=== PATIENT | female | born 1985 | race Asian ===

== ENCOUNTER 2018-06-07 05:45 | Inpatient (IN) | payer OTHER ==
[2018-06-07] MEDS ORDERED: ELECTROLYTE-148 SOLN 500 ML IV ONE ×2 (05:50→06:20)
[2018-06-07] MEDS ORDERED: TUBERCULIN PPD 5 TU/0.1ML SYRINGE (IN PATIENT USE ONLY) ID ONE (06:30)
[2018-06-07 06:38] VITALS: BMI 40.2
[2018-06-07] MEDS ORDERED: PHENYLEPHRINE HCL 10 MG/1 ML SINGLE DOSE VIAL ONE (07:37)
[2018-06-07] MEDS ORDERED: ceFAZolin SODIUM 1 GM VIAL ONE (07:37)
[2018-06-07] MEDS ORDERED: morphine SULFATE/Preservative Free 0.5 MG/ML (1cc Syringe) ONE (07:39)
[2018-06-07] MEDS ORDERED: OXYTOCIN 20 UNITS in 0.9% NS 20 UNIT/1,000 ML INFUS.BAG IV ONE ×2 (07:53→10:49)
[2018-06-07] MEDS ORDERED: CITRIC ACID/SODIUM CITRATE 30 ML UNIT-DOSE CUP PO ONE (08:00)
[2018-06-07] MEDS ORDERED: METHYLERGONOVINE MALEATE 0.2 MG/1 ML AMP IM PRN (08:02)
--- NOTE | 2018-06-07 08:10 | HP ---
Past Medical History - Primary Care Physician PCP:: Kassandra Pineda - Admission Chief Complaint: previous Section History Source: Patient - Past Medical History ...: 2 ...Para: 1 ...Term: 1 ...: 0 ...Spon : 0 ...Induced : 0 ...Multiple Gestation: 0 ...LMP: 08/27/17 ... Weeks Gestation by Dates: 40.0 ...EDC by Dates: 06/07/18 ...EDC by Sono: 06/12/18 - Past Surgical History Past Surgical History: Yes: Hx Myomectomy: No Hx Transabdominal Cerclage: No - Smoking History Smoking history: Never smoked Have you smoked in the past 12 months: No - Alcohol/Substance Use Hx Alcohol Use: No History of Substance Use: reports: None - Social History History of Recent Travel: No Home Medications - Allergies Allergies/Adverse Reactions: Allergies Allergy/AdvReac Type Severity Reaction Status Date / Time Beef Containing Products Allergy Mild Rash Verified 06/07/18 07:35 shrimp Allergy Mild Rash Verified 06/07/18 07:35 - Home Medications Home Medications: Ambulatory Orders Vitamins (Sjr) - 1 tab PO DAILY 05/22/18 Review of Systems - Review of Systems Constitutional: reports: No Symptoms Eyes: reports: No Symptoms HENT: reports: No Symptoms Neck: reports: No Symptoms Cardiovascular: reports: No Symptoms Respiratory: reports: No Symptoms Gastrointestinal: reports: No Symptoms Genitourinary: reports: No Symptoms Breasts: reports: No Symptoms Reported Musculoskeletal: reports: No Symptoms Integumentary: reports: No Symptoms Neurological: reports: No Symptoms Endocrine: reports: No Symptoms Hematology/Lymphatic: reports: No Symptoms Psychiatric: reports: No Symptoms Physical Exam - Maternity Vital Signs: Vital Signs Temperature 97.4 F L 06/07/18 05:45 Pulse Rate 87 06/07/18 05:45 Respiratory Rate 18 06/07/18 05:45 Blood Pressure 125/74 06/07/18 05:45 O2 Sat by Pulse Oximetry (%) Constitutional: Yes: Well Nourished, No Distress Neck: Yes: WNL Lungs: Clear to auscultation Breast(s): Yes: WNL - Abdominal Exam/OB Fundal Height: 40 Number of Fetuses: Single Presentation: Vertex Contractions: No Monitor Mode: External Heart Rate (range): 140 Category: I Accelerations: Non-Uniform - Vaginal Exam/OB Dilatation (cm): closed Amniotic Membrane Status: Intact Presentation: Vertex/Position - Physical Exam Musculoskeletal: Yes: WNL Extremities: Yes: WNL Edema: No Integumentary: Yes: WNL Psychiatric: Yes: WNL, Alert, Oriented Hemorrhage Risk Assessment - Risk Factors Medium Risk Factors: Yes: Prior , uterine surgery,or multiple laparotomies Risk Score: 1 Risk Level: Medium Risk Problem List - Problems (1) Previous section Code(s): Z98.891 - HISTORY OF UTERINE SCAR FROM PREVIOUS SURGERY Assessment/Plan Previous Section 39 weeks Cat1 Elective Section Plan Repeat Section
[2018-06-07] MEDS ORDERED: ePHEDrine SULFATE 50 MG/1 ML AMPULE ONE (08:11)
[2018-06-07 09:10] LABS: VENOUS PC02 45.8 mmHg (38-52); VENOUS PH 7.35 (7.32-7.42); VENOUS PO2 26.2 mmHg (28-48)
[2018-06-07 09:13] LABS: ARTERIAL BLD GAS O2 SATURATION 19.3 % (90-98.9); ARTERIAL BLOOD GAS PCO2 58.6 mmHg (35-45); ARTERIAL BLOOD GAS PO2 14.5 mmHg (80-100); ARTERIAL BLOOD GAS pH 7.27 (7.35-7.45)
[2018-06-07] MEDS ORDERED: ONDANSETRON 4 MG/2 ML VIAL IVPUSH PRN (09:38)
[2018-06-07] MEDS ORDERED: morphine SULFATE/Preservative Free 0.5 MG/ML (1cc Syringe) SPIN ONE (09:38)
[2018-06-07] MEDS ORDERED: IBUPROFEN 800 MG/8 ML IJ IVPB ONE (10:04)
[2018-06-07] MEDS: IBUPROFEN 800 MG/8 ML IJ IVPB PRN ×2 (10:15→21:26)
[2018-06-07] MEDS: ELECTROLYTE-148 SOLN 1,000 ML IV SCH (10:16)
[2018-06-07] MEDS: PRENATAL VITAMINS W/ FOLIC ACID TABLET (FP) PO SCH (10:17)
--- NOTE | 2018-06-07 15:02 | OP ---
Operative Note - Note: Operative Date: 06/07/18 Pre-Operative Diagnosis: Previous cesareanSection. IUP at 39 weeks Operation: Low transverse Section Findings: Live male nuchal cord X 1 Post-Operative Diagnosis: Same as Pre-op Surgeon: Kassandra Pineda Feeder Catcher: Femi Maciel Anesthesia: Spinal Estimated Blood Loss (mls): 700 Operative Report Dictated: Yes
[2018-06-07] MEDS: OXYTOCIN 20 UNITS in 0.9% NS 20 UNIT/1,000 ML INFUS.BAG IV SCH (18:31)
--- NOTE | 2018-06-07 20:15 | OP ---
DATE OF OPERATION: 06/07/2018 PREOPERATIVE DIAGNOSIS: Previous section, intrauterine at 39 weeks. OPERATION: Repeat section. POSTOPERATIVE DIAGNOSIS: Previous section, intrauterine at 39 weeks, nuchal cord x1, and a live male infant. SURGEON: Aaron Pineda MD LINOLEUM LAYER APPRENTICE: JAMES Alexandre; MD unavailable. ANESTHESIA: Spinal. PROCEDURE: Patient was taken to the operating room, placed in supine position, prepped and draped in usual sterile fashion. After timeout had been given, a Pfannenstiel skin incision was made through the patient's previous scar. Cautery was then used to go through the layers of abdominal wall to the level of the fascia. Fascia was cut in the midline, and cautery was then used to open the fascia in the following fashion. Kenneth was then used to bluntly and sharply dissect the rectus muscle off the fascia. Muscle split in the midline. Peritoneal cavity was then entered and carried upward and downward. Bladder retractor was then placed. Vesicouterine reflection was then entered and carried downward. Scalpel was then used to make a low transverse uterine incision. Incision was carried upwards using bandage scissors. A live male was delivered in OT position. Nuchal cord x1 was reduced. Shoulders were delivered without difficulty. Cord was clamped and cut. Cord pH obtained. Cord gases obtained. Delayed cord clamping was done. Infant was handed to roving tester laboratory. Placenta was manually extracted from the uterus. Uterus exteriorized and cleaned with clean lap pads. Uterine incision closed using 0 Biosyn suture, first layer of continuous and locking, second layer imbricating the first layer. A bleeder was noted in the left lower segment of the uterus, and [id number] sutures were then used to tie off the bleeding. Hemostasis was then established. Tubes and ovaries were noted to be normal. Uterus interiorized. Abdominal cavity cleaned with clean lap pads. All bleeding was checked and found to be hemostatic. Peritoneum closed using 0 Biosyn suture. Fascia was then closed using 0 Vicryl suture in 2 parts. Skin was then closed using 3-0 Vicryl in subcuticular fashion. Wound was washed and dressed. Patient had tolerated the procedure well. ESTIMATED BLOOD LOSS: 700 mL AARON PINEDA M.D. [id number]
[2018-06-08] MEDS: ACETAMINOPHEN 325 MG TABLET (FP) PO PRN ×3 (05:12→19:39)
[2018-06-08] MEDS: SIMETHICONE 80 MG TAB.CHEW (FP) PO PRN ×3 (05:12→19:42)
[2018-06-08] MEDS: IBUPROFEN 600 MG TABLET (FP) PO PRN ×3 (05:14→19:40)
[2018-06-08 07:49] LABS: BASO % 0.2 % (0-2.0); EOS % 0.9 % (0-4.5); HEMATOCRIT 28.7 % (32.4-45.2); HEMOGLOBIN 9.8 GM/dL (10.7-15.3); LYMPH % 8.5 % (8-40); MCHC 34.2 g/dl (32.0-36.0); MEAN CELL VOLUME 87.8 fl (80-96); MEAN PLT VOLUME 8.6 fl (7.5-11.1); MONO % 7.2 % (3.8-10.2); NEUT % 83.2 % (42.8-82.8); PLATELET COUNT 171 K/MM3 (134-434); RBC 3.27 M/mm3 (3.60-5.2); RDW 12.5 % (11.6-15.6); WHITE BLOOD COUNT 11.6 K/mm3 (4.0-10.0)
[2018-06-08] MEDS: ELECTROLYTE-148 SOLN 1,000 ML IV SCH (08:00)
[2018-06-08] MEDS ORDERED: oxyCODONE HCL 5 MG TABLET PO PRN ×2 (08:02)
[2018-06-08] MEDS ORDERED: BISACODYL 10 MG SUPP.RECT RC PRN (08:02)
[2018-06-08] MEDS: OXYTOCIN 20 UNITS in 0.9% NS 20 UNIT/1,000 ML INFUS.BAG IV SCH (08:15)
[2018-06-08] MEDS: FERROUS SO4 325 MG TABLET (FP) PO SCH ×2 (09:29→21:16)
[2018-06-08] MEDS: PRENATAL VITAMINS W/ FOLIC ACID TABLET (FP) PO SCH (09:29)
[2018-06-08] MEDS ORDERED: DIPHTH,PERTUSS(ACELL),TET 0.5 ML DISP.SYRIN IM ONE (10:00)
--- NOTE | 2018-06-08 14:07 | PN ---
Progress Note (short form) - Note Progress Note: Anesthesia postop note 33 y/o F s/p spinal anesthesia for section, duramorph for postop pain POD#!, vss, aaox3, no complaints, sensorymotor intact distally, pain well controlled. No anesthesia complications.
--- NOTE | 2018-06-09 06:39 | PN ---
Progress Note (SOAP) - Subjective Chief Complaint: Pt doing well - Current Medications Current Medications: Active Medications Acetaminophen (Tylenol -) 650 mg PO Q4H PRN PRN Reason: FEVER Last Admin: 06/08/18 19:39 Dose: 650 mg Bisacodyl (Dulcolax Suppository -) 10 mg RC PRN PRN PRN Reason: CONSTIPATION Diphenhydramine HCl (Benadryl Injection -) 25 mg IVPUSH Q4H PRN PRN Reason: Pruritis Last Admin: 06/07/18 13:56 Dose: 25 mg Ferrous Sulfate (Feosol -) 325 mg PO BID KIMBERLY Last Admin: 06/08/18 21:16 Dose: 325 mg Ibuprofen (Caldolor Injection -) 800 mg IVPB Q8H PRN PRN Reason: FEVER Last Admin: 06/07/18 21:26 Dose: 800 mg Ibuprofen (Motrin -) 600 mg PO Q4H PRN PRN Reason: PAIN LEVEL 1 - 3 Last Admin: 06/08/18 19:40 Dose: 600 mg Methylergonovine Maleate (Methergine Injection -) 0.2 mg IM Q4H PRN PRN Reason: Excessive Bleeding (L&D) Last Admin: 06/07/18 15:13 Dose: 0.2 mg Oxycodone HCl (Roxicodone -) 5 mg PO Q4H PRN PRN Reason: PAIN LEVEL 4 - 6 Oxycodone HCl (Roxicodone -) 10 mg PO Q4H PRN PRN Reason: PAIN LEVEL 7 - 10 Multivit/Folic Acid/Iron ( Vitamins (Sjr) -) 1 tab PO DAILY [facility] Last Admin: 06/08/18 09:29 Dose: 1 tab Simethicone (Mylicon -) 80 mg PO Q4H PRN PRN Reason: GAS Last Admin: 06/08/18 19:42 Dose: 80 mg - Objective Vital Signs: Vital Signs Temperature 98.1 F 06/08/18 22:00 Pulse Rate 87 06/08/18 22:00 Respiratory Rate 18 06/08/18 22:00 Blood Pressure 124/77 06/08/18 22:00 O2 Sat by Pulse Oximetry (%) 99 06/07/18 21:00 Constitutional: Yes: Well Nourished, No Distress Neck: Yes: WNL Cardiovascular: Yes: WNL, Regular Rate and Rhythm Respiratory: Yes: WNL, Regular Gastrointestinal: Yes: WNL, Soft, Abdomen, Obese ....Post : Yes: Uterus firm, Uterus non-tender Breast(s): Yes: WNL Musculoskeletal: Yes: WNL Extremities: Yes: WNL Edema: No Wound/Incision: Yes: Steri Strips Neurological: Yes: WNL, Alert, Oriented Labs Lab Results: CBC, BMP 06/08/18 06:30 Problem List - Problems (1) Previous section Code(s): Z98.891 - HISTORY OF UTERINE SCAR FROM PREVIOUS SURGERY Assessment/Plan Previous Section POD2 Plan Continue present management
[2018-06-09] MEDS: PRENATAL VITAMINS W/ FOLIC ACID TABLET (FP) PO SCH (09:12)
[2018-06-09] MEDS: FERROUS SO4 325 MG TABLET (FP) PO SCH ×2 (09:12→21:45)
[2018-06-09] MEDS: ACETAMINOPHEN 325 MG TABLET (FP) PO PRN ×2 (12:25→20:03)
[2018-06-09] MEDS: SIMETHICONE 80 MG TAB.CHEW (FP) PO PRN ×2 (12:25→20:03)
[2018-06-09] MEDS: IBUPROFEN 600 MG TABLET (FP) PO PRN ×2 (12:26→20:05)
--- NOTE | 2018-06-09 21:26 | PN ---
Post Progress Note - Subjective Subjective: Pt seen/examined and doing well. Comlpains of incisional burning otherwise no complaints. Type of Delivery: Repeat C/S Vital Signs: Vital Signs Temperature 98.0 F 06/09/18 14:00 Pulse Rate 88 06/09/18 14:00 Respiratory Rate 18 06/09/18 14:00 Blood Pressure 117/69 06/09/18 14:00 O2 Sat by Pulse Oximetry (%) 99 06/07/18 21:00 Breast Exam: Yes: Soft Uterus: Yes: Fundus Firm Incision: Yes: Dressing dry and intact (steri strips in tact) Abdomen/GI: Yes: Abdomen soft, Passing flatus, Tolerating PO. No: Abdominal Distention, Tender Lochia, amount: Small Extremities: Yes: Calves non-tender Perineum: Yes: Intact Activity: Ambulating - Labs Labs: CBC WBC 11.6 K/mm3 (4.0-10.0) H 06/08/18 06:30 RBC 3.27 M/mm3 (3.60-5.2) L 06/08/18 06:30 Hgb 9.8 GM/dL (10.7-15.3) L 06/08/18 06:30 Hct 28.7 % (32.4-45.2) L D 06/08/18 06:30 MCV 87.8 fl (80-96) 06/08/18 06:30 MCH 30.0 pg (25.7-33.7) 06/08/18 06:30 MCHC 34.2 g/dl (32.0-36.0) 06/08/18 06:30 RDW 12.5 % (11.6-15.6) 06/08/18 06:30 Plt Count 171 K/MM3 (134-434) 06/08/18 06:30 MPV 8.6 fl (7.5-11.1) 06/08/18 06:30 Absolute Neuts (auto) 9.7 K/mm3 (1.5-8.0) H 06/08/18 06:30 Neutrophils % 83.2 % (42.8-82.8) H D 06/08/18 06:30 Lymphocytes % 8.5 % (8-40) D 06/08/18 06:30 Monocytes % 7.2 % (3.8-10.2) 06/08/18 06:30 Eosinophils % 0.9 % (0-4.5) 06/08/18 06:30 Basophils % 0.2 % (0-2.0) 06/08/18 06:30 Nucleated RBC % 0 % (0-0) 06/08/18 06:30 Problem List - Problems (1) delivery delivered Code(s): O82 - ENCOUNTER FOR DELIVERY WITHOUT INDICATION Assessment/Plan 33 y/o POD#2 s/p repeat c section feeling well regular diet PO pain meds ambulation routine care plan for discharge home in a.m. if stable
--- NOTE | 2018-06-09 21:33 | DS ---
Physical Exam-[employer] LEADER Vital Signs: Vital Signs Temperature 98.0 F 06/09/18 14:00 Pulse Rate 88 06/09/18 14:00 Respiratory Rate 18 06/09/18 14:00 Blood Pressure 117/69 06/09/18 14:00 O2 Sat by Pulse Oximetry (%) 99 06/07/18 21:00 Constitutional: Yes: Well Nourished, No Distress, Calm Neck: Yes: Supple Respiratory: Yes: Regular, CTA Bilaterally Gastrointestinal: Yes: Normal Bowel Sounds, Soft. 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 Pt underwent uncomplicated procedure (see op report). She underwent an uncomplicated post recovery and was discharged home on post op day 3. Condition: Good - Instructions Diet, Activity, Other Instructions: Physical activity Resume your normal everyday activity as tolerated no heavy lifting or exercise until seen by your surgeon. You may walk unlimited rona of and climb stairs. You may resume driving the car when you feel safe and comfortable behind the wheel. No sexual activity as instructed. Wound care If you have a bandage, leave it on, and keep dry for 48-72 hours. After that time discard the outer bandage. If they are tapes on the skin under the out of bandage leave them in place. They will peel off in the next 7 to 10 days. Do Not Peel them off. You may shower the day after surgery. If there are tapes present on the skin, you may shower over them. Diet There are no dietary restrictions. Eat healthy, high-fiber foods. Drink 6 to 8 glasses of liquid each day. This will assist in keeping your bowels are regular. Pain management You may take Tylenol or acetaminophen or Ibuprofen (for example, Motrin, Advil etc.) from my pain prescription medication is ordered should be taken as prescribed for moderate to severe pain. Call MD for any of the following: Severe pain not relieved by medication Fever of 101 or higher Excessive bleeding or drainage on dressing Inability to urinate Disposition: HOME - Home Medications Comprehensive Discharge Medication List: Ambulatory Orders Vitamins (Sjr) - 1 tab PO DAILY 05/22/18 Ibuprofen [Motrin -] 600 mg PO QID PRN #28 tablet 06/09/18
[2018-06-10 08:16] LABS: BASO % 0.3 % (0-2.0); EOS % 1.5 % (0-4.5); HEMATOCRIT 28.9 % (32.4-45.2); HEMOGLOBIN 9.6 GM/dL (10.7-15.3); LYMPH % 15.9 % (8-40); MCH 29.6 pg (25.7-33.7); MCHC 33.3 g/dl (32.0-36.0); MEAN CELL VOLUME 88.9 fl (80-96); NEUT % 75.3 % (42.8-82.8); PLATELET COUNT 192 K/MM3 (134-434); RBC 3.24 M/mm3 (3.60-5.2); RDW 12.7 % (11.6-15.6); WHITE BLOOD COUNT 9.3 K/mm3 (4.0-10.0)
[2018-06-10] MEDS: SIMETHICONE 80 MG TAB.CHEW (FP) PO PRN (09:09)
[2018-06-10] MEDS: PRENATAL VITAMINS W/ FOLIC ACID TABLET (FP) PO SCH (09:09)
[2018-06-10] MEDS: FERROUS SO4 325 MG TABLET (FP) PO SCH (09:09)
[2018-06-10] MEDS: IBUPROFEN 600 MG TABLET (FP) PO PRN (09:09)
[2018-06-10] MEDS: ACETAMINOPHEN 325 MG TABLET (FP) PO PRN (09:10)
[2018-06-10 11:02] LABS: ACANTHOCYTES 0; ANISOCYTOSIS 0; HELMET CELLS 0; HOWELL-JOLLY BODIES 0; MACROCYTOSIS 0; OVALOCYTE 0; PLATELET ESTIMATE NORMAL; ROULEAU 0; SICKELED CELLS 0; TARGET CELLS 0; TEAR DROP CELLS 0; TOXIC GRANULATION 0
[2018-06-10 11:14] VITALS: BP 130/78; PULSE 83; TEMP 98.3
--- NOTE | 2018-06-14 17:37 | PATH ---
Surgical Pathology Report Patient Name: FABBY FELIX [facility]. Rec. #: [id number] /Age/Gender: 1985 (Age: 33) / F Account: [id number] Location: [facility] OBS/ROAD MAKER Taken: 06/07/2018 Received: 06/08/2018 Reported: 06/14/2018 Physicians: Kassandra Pineda M.D. Specimen(s) Received PLACENTA Clinical History term for repeat Final Diagnosis PLACENTA, SECTION: 338 G THIRD TRIMESTER PLACENTA WITH TRIVASCULAR UMBILICAL CORD AND FOCAL MILD ACUTE CHORIOAMNIONITIS. Electronically Signed Irene Lowery M.D. Gross Description The specimen is received fresh labeled placenta and is a 338 gram, 15.0 x 15.0 x 2.3 cm. placenta with attached membranes and umbilical cord. The attached membranes are hi, translucent with focal opacities and insert marginally. The umbilical cord measures 13 cm. in length and averages 1.0 cm. in diameter. The cord inserts eccentrically, 6 cm. to the nearest margin. No true knots or strictures are identified. Cut surface of the umbilical cord reveals 3 vessels. The surface is [place]-blue with minimal fibrin deposition and appropriate caliber vessels. The maternal surface is red-brown with focal defects. Sectioning reveals red-brown, spongy parenchyma. No lesions are identified. [employer] sections are submitted in three cassettes as follows: 1- membrane rolls and umbilical cord; 2-3- full thickness sections of placenta. 06/11/201806/11/2018
== END 2018-06-10 15:35 | disposition home or self-care (01) | DRG 540 ==
LOC: JLDR 05:45 → J3W 10:57
PROVIDERS: ADMIT Obstetrics & Gynecology; ATTEND Obstetrics & Gynecology
PROC: 10D00Z1 Extraction of Products of Conception, Low, Open Approach (ICD-10-PCS; principal; 2018-06-07)
DX: O34.219 Maternal care for unspecified type scar from previous cesarean delivery (principal); O69.81X0 Labor and delivery complicated by cord around neck, without compression, not applicable or unspecified; Z3A.39 39 weeks gestation of pregnancy; Z37.0 Single live birth
CPT/HCPCS: 36415; 36600; 71046-TC-FY; 82803; 85025; 88307-TC; 90686; 90715; G0008

== ENCOUNTER 2022-04-14 04:46 | Day surgery (SDC) | payer OTHER ==
[2022-04-11 13:40] VITALS: BMI 37.0
[2022-04-14] MEDS ORDERED: ONDANSETRON 4 MG/2 ML VIAL IVPUSH PRN (07:26)
[2022-04-14] MEDS ORDERED: LACTATED RINGERS SOLUTION 1,000 ML IV SCH (07:30)
[2022-04-14] MEDS ORDERED: ACETAMINOPHEN 325 MG TABLET (FP) PO PRN (07:55)
[2022-04-14] MEDS ORDERED: IBUPROFEN 400 MG TABLET (FP) PO PRN (07:55)
[2022-04-14] MEDS ORDERED: LIDOCAINE HCL/PF (2%) 40 MG/2 ML VIAL ONE (08:19)
[2022-04-14] MEDS ORDERED: PROPOFOL 40 ML ONE (08:19)
[2022-04-14] MEDS ORDERED: MIDAZOLAM HCL 2 MG/2 ML SINGLE DOSE VIAL ONE (08:56)
[2022-04-14] MEDS ORDERED: DEXAMETHASONE SOD PHOSPHATE 4 MG/1 ML VIAL ONE (09:21)
[2022-04-14] MEDS ORDERED: ONDANSETRON 4 MG/2 ML VIAL ONE ×2 (09:21→09:27)
[2022-04-14 11:36] VITALS: PULSE 60; RESP 18
[2022-04-14 12:07] VITALS: BP 133/79; TEMP 98.2
== END 2022-04-14 13:20 | disposition home or self-care (01) ==
LOC: JASU-SURG 04:46
PROVIDERS: ATTEND Obstetrics & Gynecology
PROC: 0UJD8ZZ Inspection of Uterus and Cervix, Via Natural or Artificial Opening Endoscopic (ICD-10-PCS; 2022-04-14)
PROC: 0UB98ZZ Excision of Uterus, Via Natural or Artificial Opening Endoscopic (ICD-10-PCS; principal; 2022-04-14 08:30)
PROC: 0UDB7ZX Extraction of Endometrium, Via Natural or Artificial Opening, Diagnostic (ICD-10-PCS; 2022-04-14 08:30)
DX: D25.0 Submucous leiomyoma of uterus (principal); N84.0 Polyp of corpus uteri
CPT/HCPCS: 81025; 88305-TC; 94760